=== PATIENT | male | born 1950 | race Caucasian/White ===

== ENCOUNTER 2019-04-26 10:38 | Outpatient (CLI) | payer MEDICARE, OTHER, SELFPAY | END 2019-04-26 10:39 | disposition home or self-care (01) | LOC: ANHBWCAUD 10:43 | PROVIDERS: Visit Provider Otolaryngology | DX: H93.19 Tinnitus, unspecified ear (principal); H90.3 Sensorineural hearing loss, bilateral | CPT/HCPCS: 92557; 92567 ==

== ENCOUNTER 2024-08-14 13:52 | Outpatient (RCR) | payer MEDICARE, OTHER, SELFPAY ==
--- NOTE | 2024-08-21 16:59 | BUOTOPEVAL ---
Assessment and note entered by Maliha Purdy OT Evaluation Information Assessment Status Evaluation Diagnosis R partial tear of bicep tendon ICD-10 Condition Codes (OT) Pain in right elbow M25.521 Onset July 04, 2024 Reported Pain Level Pain Score 0: Self Report Pain Score 2: Self Report Assessment OT Clinical Summary The patient is a 73 year old male who was referred to outpatient OT due to R distal biceps partial tear. He previously demonstrated no pain, WNL UE strength and no swelling of R UE with performing all ADLs/IADLs with independence. The patient now demonstrates moderately impaired independence for ADLs/IADLs, mild pain in R bicep and lateral elbow , 4/5 muscle strength of R UE and mild swelling which affects the patient's ability to carry groceries and lift items for ADLs. Plan of Care Interventions Therapeutic Exercise,Manual Therapy,Neuro Re- education,Therapeutic Activities,Hot Pack/Cold Pack,Electrical Stimulation,Sensory Integrative Techniques,Self-Care/Home Management OT Services Indicated Yes OT Services Indicated Yes Treatment Frequency and 2x/week for 10 visits. Duration These treatments will address the objective and functional deficits as defined above. The patient will be advanced safely and appropriately in order for the patient to progress towards his/her prior level of function. Additional exercises will be introduced and as well as a comprehensive home exercise program upon discharge, if needed, ?to ensure carryover of functional gains achieved in the clinic. This treatment plan has been reviewed and agreement upon by the patient.
--- NOTE | 2024-08-21 16:59 | OPREHPOC ---
Outpatient Therapy Plan of Care This is a Multidisciplinary Plan of Care that may contain components documented by all disciplines (PT, OT, and ST.) OT Problem 1 OT Problem #1 Knowledge Deficit OT Goal 1 Goal / Goal Update The patient will demonstrate knowledge of UE HEP needed to decrease pain and improve strength. Target Visit 10 OT Goal 2 Goal / Goal Update The patient will demonstrate decreased swelling of R UE with [id number] cm at proximal forearm and at distal humerus to avoid limited ROM. Evaluation R UE: 30 cm proximal forearm 29.5 cm distal humerus L UE: 29 cm proximal forearm 28.75 cm distal humerus Target Visit 10 OT Problem 2 OT Problem #2 Pain OT Goal 1 Goal / Goal Update The patient will demonstrate 0/10 pain while lifting <10 lbs in order to avoid further injury and ensure independence with ADLs. Target Visit 10 OT Goal 2 Goal / Goal Update The patient will demonstrate 5/5 muscle strength with no signs of pain during elbow flexion/ extension upon healing of bicep tear to ensure independence with carrying groceries.
--- NOTE | 2024-09-18 12:56 | OTOPDC ---
Assessment and note entered by Maliha Purdy, OT Evaluation Information Assessment Status Discharge Diagnosis R partial tear of bicep tendon Subjective Information The patient reports he has been doing his UE HEP to attempt to increase strength of supporting structures of bicep tear. The patient demonstrates good engagement in therapy exercises and activities with motivation to improve symptoms. He demonstrates good resting of R UE with difficulty performing IADLs and some ADLs due to lifting restrictions. At this time, the patient reports 6/ 10 pain at its worst due to continued tear but does report the pain is less evident by end of POC . Reported Pain Level Pain Score 0: Self Report Pain Score 0: Self Report Assessment OT Clinical Summary The patient demonstrates good progress toward understanding and completion of HEP and decreased swelling of R UE with WNL for circumferential measurements. Patient demonstrates limited progress in muscle strength and pain during lifting <10 lbs during ADLs due to continued symptoms from partial tear. Therapist provided patient with HEP, manual treatment, modalities and exercises to improve pain symptoms and increase strength with the patient demonstrating minimal improvement. The patient is to follow up with MD , to discuss further treatment options, at this time, the patient is discharged with HEP and to continue to rest and protect R UE until follow up with MD. Plan of Care OT Services Indicated No
--- NOTE | 2024-09-18 12:56 | OPREHPOC ---
Outpatient Therapy Plan of Care This is a Multidisciplinary Plan of Care that may contain components documented by all disciplines (PT, OT, and ST.) OT Problem 1 OT Problem #1 Knowledge Deficit OT Goal 1 Goal / Goal Update The patient will demonstrate knowledge of UE HEP needed to decrease pain and improve strength. GOAL MET; DISCONTINUE 09/18/2024 Target Visit 10 Progress Met OT Goal 2 Goal / Goal Update The patient will demonstrate decreased swelling of R UE with approx 29 cm at proximal forearm and at distal humerus to avoid limited ROM. GOAL MET; DISCONTINUE 09/18/2024 Discharge: R UE proximal forearm 29.5 CM distal humerus 28.25 CM Evaluation R UE: 30 cm proximal forearm 29.5 cm distal humerus L UE: 29 cm proximal forearm 28.75 cm distal humerus Target Visit 10 Progress Met OT Problem 2 OT Problem #2 Pain OT Goal 1 Goal / Goal Update The patient will demonstrate 0/10 pain while lifting <10 lbs in order to avoid further injury and ensure independence with ADLs. GOAL NOT MET; DISCONTINUED DUE TO PLATEAU 09/18/202407/24 Target Visit 10 Progress Not Met OT Goal 2 Goal / Goal Update The patient will demonstrate 5/5 muscle strength with no signs of pain during elbow flexion/ extension upon healing of bicep tear to ensure independence with carrying groceries. GOAL NOT MET; DISCONTINUED DUE TO PLATEAU (refer to MD at next follow up 09/26) 4+/5 muscle strength of R elbow 4/10 pain reported
== END 2024-09-18 16:36 | disposition home or self-care (01) ==
LOC: CHSOT 13:52
PROVIDERS: PCP Family Medicine
DX: S46.219A Strain of muscle, fascia and tendon of other parts of biceps, unspecified arm, initial encounter (principal)
CPT/HCPCS: 97014; 97110; 97140; 97165; 97530; G0283